=== PATIENT | female | born 1945 | race Caucasian/White ===

== ENCOUNTER → 2016-10-29 | Outpatient (CLI) | payer OTHER, MEDICAID ==
[~2016-10-29] MED LIST: ASPIR-LOX325 MG PO; CALCIUM 500 + D1 TA1 PO; CARAFATE1 G1 PO; HYDROCODONE BIT1 T11 PO; KLOR-CON M2020 MEQ PO; LASIX40 MG PO; OMEPRAZOLE DR20 MG PO
[2016-10-29 10:46] LABS: CHLORIDE 108 mmol/L (98-107); POTASSIUM 3.6 mmol/L (3.5-5.1); SODIUM 140 mmol/L (136-145); TOTAL PROTEIN 6.5 gm/dL (6.4-8.2)
[2016-10-29 10:51] LABS: ALBUMIN 3.7 gm/dl (3.1-4.5); ALKALINE PHOSPHATASE 81 U/L (45-117); BUN 19 mg/dl (7-24); CHOLESTEROL 174 mg/dL (<200); CPK 94 U/L (26-192); CREATININE 0.57 mg/dL (0.55-1.02); HDL CHOLESTEROL 58 mg/dl (40-60); LDL CHOLESTEROL 103 mg/dL (9-159); SGOT/AST 29 IU/L (3-35); SGPT/ALT 27 U/L (12-78); TRIGLYCERIDES 65 mg/dl (<150); VLDL CHOLESTEROL 13 mg/dL (6-40)
== END | disposition home or self-care (01) ==
LOC: LAB 09:46
PROVIDERS: Family Medicine
DX: E11.9 Type 2 diabetes mellitus without complications (principal); E78.00 Pure hypercholesterolemia, unspecified

== ENCOUNTER → 2017-04-27 | Outpatient (CLI) | payer OTHER, MEDICAID ==
[2017-04-27 09:45] LABS: HEMATOCRIT 41.1 % (37.0-47.0); HEMOGLOBIN 14.3 g/dl (12.0-16.0); MEAN CELL VOLUME 97.2 fl (81.0-99.0); MEAN CORPUSCULAR HGB 33.8 pg (27.0-31.0); MEAN CORPUSCULAR HGB CONC 34.8 g/dl (33.0-37.0); MEAN PLATELET VOLUME 9.3 fl (9.6-12.3); RED BLOOD COUNT 4.23 10*6/uL (4.10-5.10); RED CELL DISTRI WIDTH 12.3 % (0-14.5); WHITE BLOOD COUNT 6.7 10*3/uL (4.8-10.8)
[2017-04-27 10:15] LABS: ALBUMIN 3.7 gm/dl (3.1-4.5); ALKALINE PHOSPHATASE 89 U/L (45-117); BUN 18 mg/dl (7-24); CHLORIDE 106 mmol/L (98-107); CHOLESTEROL 194 mg/dL (<200); HDL CHOLESTEROL 62 mg/dl (40-60); LDL CHOLESTEROL 103 mg/dL (9-159); POTASSIUM 3.9 mmol/L (3.5-5.1); SGOT/AST 29 IU/L (3-35); SGPT/ALT 23 U/L (12-78); SODIUM 140 mmol/L (136-145); TOTAL PROTEIN 6.7 gm/dL (6.4-8.2); TRIGLYCERIDES 143 mg/dl (<150); VLDL CHOLESTEROL 29 mg/dL (6-40)
== END | disposition home or self-care (01) ==
LOC: LAB 09:20
PROVIDERS: Family Medicine
DX: J44.9 Chronic obstructive pulmonary disease, unspecified (principal); E78.00 Pure hypercholesterolemia, unspecified; K21.9 Gastro-esophageal reflux disease without esophagitis; M19.91 Primary osteoarthritis, unspecified site; E55.9 Vitamin D deficiency, unspecified; E11.9 Type 2 diabetes mellitus without complications

== ENCOUNTER → 2017-06-01 | Outpatient (CLI) | payer OTHER, MEDICAID | END | disposition home or self-care (01) | LOC: RAD 09:24 | DX: J45.909 Unspecified asthma, uncomplicated (principal) ==

== ENCOUNTER → 2017-06-07 | Outpatient (CLI) | payer OTHER, MEDICAID ==
[2017-06-07 12:16] LABS: BASO % 0.5 % (0.0-1.0); EOS # 0.2 10*3/uL (0.0-0.4); EOS % 2.8 % (1.0-4.0); HEMATOCRIT 42.4 % (37.0-47.0); HEMOGLOBIN 14.4 g/dl (12.0-16.0); LYMPH % 15.9 % (27.0-41.0); MEAN CELL VOLUME 97.2 fl (81.0-99.0); MEAN PLATELET VOLUME 9.8 fl (9.6-12.3); MONO # 0.4 10*3/uL (0.1-1.0); MONO % 5.8 % (3.0-9.0); NEUT # 4.5 10*3/uL (2.3-7.9); NEUT % 74.8 % (47.0-73.0); PLATELET COUNT AUTOMATED 212 10*3/uL (130-400); RED BLOOD COUNT 4.36 10*6/uL (4.10-5.10); RED CELL DISTRI WIDTH 12.6 % (0-14.5); WHITE BLOOD COUNT 6.1 10*3/uL (4.8-10.8)
[2017-06-07 12:32] LABS: BUN 16 mg/dl (7-24); CREATININE 0.66 mg/dL (0.55-1.02); IRON 148 ug/dL (50-170); TOTAL IRON BINDING CAPACITY 284 ug/dl (250-450)
== END | disposition home or self-care (01) ==
LOC: LAB 11:29
PROVIDERS: Internal Medicine Hematology & Oncology
DX: D50.9 Iron deficiency anemia, unspecified (principal)

== ENCOUNTER → 2017-08-24 | Outpatient (CLI) | payer OTHER, MEDICAID ==
[2017-08-24 11:35] LABS: HEMATOCRIT 41.4 % (37.0-47.0); HEMOGLOBIN 14.4 g/dl (12.0-16.0); MEAN CELL VOLUME 96.3 fl (81.0-99.0); MEAN CORPUSCULAR HGB 33.5 pg (27.0-31.0); MEAN CORPUSCULAR HGB CONC 34.8 g/dl (33.0-37.0); RED BLOOD COUNT 4.3 10*6/uL (4.10-5.10); RED CELL DISTRI WIDTH 12.7 % (0-14.5); WHITE BLOOD COUNT 6.5 10*3/uL (4.8-10.8)
[2017-08-24 11:39] LABS: ALKALINE PHOSPHATASE 80 U/L (45-117); BUN 15 mg/dl (7-24); CHLORIDE 110 mmol/L (98-107); CHOLESTEROL 171 mg/dL (<200); CPK 58 U/L (26-192); CREATININE 0.64 mg/dL (0.55-1.02); HDL CHOLESTEROL 50 mg/dl (40-60); LDL CHOLESTEROL 99 mg/dL (9-159); POTASSIUM 4.3 mmol/L (3.5-5.1); SGOT/AST 42 IU/L (3-35); SGPT/ALT 40 U/L (12-78); SODIUM 142 mmol/L (136-145); TOTAL PROTEIN 6.9 gm/dL (6.4-8.2); TRIGLYCERIDES 108 mg/dl (<150); VLDL CHOLESTEROL 22 mg/dL (6-40)
== END | disposition home or self-care (01) ==
LOC: LAB 10:40
PROVIDERS: Family Medicine
DX: E78.00 Pure hypercholesterolemia, unspecified (principal); E11.9 Type 2 diabetes mellitus without complications; E55.9 Vitamin D deficiency, unspecified; I10 Essential (primary) hypertension

== ENCOUNTER → 2017-12-07 | Outpatient (CLI) | payer OTHER, MEDICAID ==
[2017-12-07 13:06] LABS: HEMATOCRIT 40.6 % (37.0-47.0); HEMOGLOBIN 14.2 g/dl (12.0-16.0); MEAN CELL VOLUME 96.2 fl (81.0-99.0); MEAN CORPUSCULAR HGB 33.6 pg (27.0-31.0); MEAN PLATELET VOLUME 9.8 fl (9.6-12.3); RED BLOOD COUNT 4.22 10*6/uL (4.10-5.10); RED CELL DISTRI WIDTH 12.5 % (0-14.5); WHITE BLOOD COUNT 5.9 10*3/uL (4.8-10.8)
[2017-12-07 13:33] LABS: ALBUMIN 3.8 gm/dl (3.1-4.5); ALKALINE PHOSPHATASE 83 U/L (45-117); BUN 12 mg/dl (7-24); CHLORIDE 108 mmol/L (98-107); CHOLESTEROL 169 mg/dL (<200); CPK 44 U/L (26-192); CREATININE 0.54 mg/dL (0.55-1.02); HDL CHOLESTEROL 56 mg/dl (40-60); LDL CHOLESTEROL 96 mg/dL (9-159); POTASSIUM 3.8 mmol/L (3.5-5.1); SGOT/AST 24 IU/L (3-35); SGPT/ALT 21 U/L (12-78); SODIUM 142 mmol/L (136-145); TOTAL PROTEIN 6.5 gm/dL (6.4-8.2); TRIGLYCERIDES 86 mg/dl (<150); VLDL CHOLESTEROL 17 mg/dL (6-40)
== END | disposition home or self-care (01) ==
LOC: LAB 10:59
PROVIDERS: Family Medicine
DX: Z45.2 Encounter for adjustment and management of vascular access device (principal); E11.9 Type 2 diabetes mellitus without complications; I10 Essential (primary) hypertension; E78.00 Pure hypercholesterolemia, unspecified; E55.9 Vitamin D deficiency, unspecified; J44.9 Chronic obstructive pulmonary disease, unspecified; M19.90 Unspecified osteoarthritis, unspecified site

== ENCOUNTER → 2018-06-08 | Outpatient (CLI) | payer OTHER, MEDICAID ==
[2018-06-08 11:22] LABS: HEMATOCRIT 47.5 % (37.0-47.0); MEAN CELL VOLUME 94.4 fl (81.0-99.0); MEAN CORPUSCULAR HGB 33.8 pg (27.0-31.0); MEAN CORPUSCULAR HGB CONC 35.8 g/dl (33.0-37.0); MEAN PLATELET VOLUME 9.6 fl (9.6-12.3); RED BLOOD COUNT 5.03 10*6/uL (4.10-5.10); RED CELL DISTRI WIDTH 12.3 % (0-14.5); WHITE BLOOD COUNT 6.3 10*3/uL (4.8-10.8)
[2018-06-08 11:50] LABS: ALBUMIN 4.3 gm/dl (3.1-4.5); ALKALINE PHOSPHATASE 81 U/L (45-117); BUN 18 mg/dl (7-24); CHLORIDE 103 mmol/L (98-107); CHOLESTEROL 218 mg/dL (<200); CREATININE 0.84 mg/dL (0.55-1.02); HDL CHOLESTEROL 68 mg/dl (40-60); LDL CHOLESTEROL 125 mg/dL (9-159); POTASSIUM 4.1 mmol/L (3.5-5.1); SGOT/AST 26 IU/L (3-35); SGPT/ALT 23 U/L (12-78); SODIUM 139 mmol/L (136-145); TOTAL PROTEIN 7.8 gm/dL (6.4-8.2); TRIGLYCERIDES 123 mg/dl (<150); VLDL CHOLESTEROL 25 mg/dL (6-40)
== END | disposition home or self-care (01) ==
LOC: LAB 11:03
PROVIDERS: Family Medicine
DX: E78.00 Pure hypercholesterolemia, unspecified (principal); M19.90 Unspecified osteoarthritis, unspecified site; E11.9 Type 2 diabetes mellitus without complications; J40 Bronchitis, not specified as acute or chronic; H53.8 Other visual disturbances; J43.9 Emphysema, unspecified

== ENCOUNTER → 2018-06-29 | Outpatient (CLI) | payer OTHER, MEDICAID | END | disposition home or self-care (01) | LOC: MEDIPORT 10:24 | DX: Z45.2 Encounter for adjustment and management of vascular access device (principal) ==

== ENCOUNTER → 2018-07-27 | Outpatient (CLI) | payer OTHER, MEDICAID | END | disposition home or self-care (01) | LOC: MEDIPORT 10:00 | DX: Z45.2 Encounter for adjustment and management of vascular access device (principal) ==

== ENCOUNTER 2018-10-28 12:26 | Inpatient (IN) | payer OTHER, MEDICAID ==
[~2018-10-28] VITALS: Ht 162.5 cm; Wt 71.8 kg
[2018-10-28 12:26] VITALS: BP 115/44
[2018-10-28 13:10] LABS: BASO % 0.6 % (0.0-1.0); EOS % 0.2 % (1.0-4.0); HEMATOCRIT 39.8 % (37.0-47.0); HEMOGLOBIN 13.8 g/dl (12.0-16.0); LYMPH # 0.4 10*3/uL (1.3-4.4); LYMPH % 7.6 % (27.0-41.0); MEAN CELL VOLUME 93.6 fl (81.0-99.0); MEAN CORPUSCULAR HGB 32.5 pg (27.0-31.0); MEAN CORPUSCULAR HGB CONC 34.7 g/dl (33.0-37.0); MEAN PLATELET VOLUME 10.6 fl (9.6-12.3); MONO # 0.3 10*3/uL (0.1-1.0); MONO % 5.7 % (3.0-9.0); NEUT # 4.5 10*3/uL (2.3-7.9); NEUT % 85.5 % (47.0-73.0); PLATELET COUNT AUTOMATED 101 10*3/uL (130-400); RED BLOOD COUNT 4.25 10*6/uL (4.10-5.10); RED CELL DISTRI WIDTH 12.9 % (0-14.5); WHITE BLOOD COUNT 5.2 10*3/uL (4.8-10.8)
[2018-10-28 13:21] LABS: INTERNATIONAL NORM RATIO 1.2 (2.0-3.5)
[2018-10-28 13:26] LABS: ALBUMIN 2.9 gm/dl (3.1-4.5); ALKALINE PHOSPHATASE 100 U/L (45-117); BUN 15 mg/dl (7-24); CHLORIDE 96 mmol/L (98-107); CREATININE 0.57 mg/dL (0.55-1.02); POTASSIUM 3.6 mmol/L (3.5-5.1); SGOT/AST 55 IU/L (3-35); SGPT/ALT 40 U/L (12-78); SODIUM 129 mmol/L (136-145)
[2018-10-28 13:28] LABS: TROPONIN I < 0.015 ng/ml (<0.045)
[2018-10-28 13:38] LABS: BILIRUBIN 1+ (NEGATIVE); BLOOD 3+ (NEGATIVE); CLARITY CLOUDY (CLEAR); COLOR YELLOW (YELLOW); GLUCOSE NEGATIVE (NEGATIVE); KETONE 1+ (NEGATIVE); LEUKO ESTERASE 2+ (NEGATIVE); NITRITE POSITIVE (NEGATIVE); SPECIFIC GRAVITY 1.025 (1.005-1.030)
[2018-10-28 13:50] LABS: BACTERIA 4+; WBC 41-50 wbc/hpf (0-5)
[2018-10-28 14:31] VITALS: BP 118/50
[2018-10-28 15:00] VITALS: BP 130/68
--- NOTE | 2018-10-28 15:00 | NUR ---
Time: 1499 A 73 year old FEMALE admitted to 5E under services of DR. YAZMIN MEJIA,DELMI Oneal Pt. arrived via wheel chair from ER. Chief complaint: DYSURIA. ANNA CARDONA
[2018-10-28 15:15] VITALS: BP 130/68
[2018-10-28] MEDS ORDERED: OXYBUTYNIN10 MG PO (15:15)
[2018-10-28] MEDS ORDERED: VESICARE5 MG PO (15:17)
--- NOTE | 2018-10-28 16:01 | NUR ---
PATIENT COMPLAINS OF ALL OVER ACHE/PAIN 5/10. MEDICATED PER ORDER. WILL CONTINUE TO MONITOR FOR RELIEF. RESTING IN BED, CALL LIGHT WITHIN REACH.
--- NOTE | 2018-10-28 16:20 | NUR ---
PATIENT COMPLAINS OF NAUSEA. OBSERVED DRY HEAVING AND ONE EPISODE OF VOMITING. NOTIFIED DR. ARCE. ORDERS RECIEVED.
--- NOTE | 2018-10-28 16:45 | NUR ---
PATIENT COMPLAINS OF NAUSEA AND VOMITING. MEDICATED WITH 8MG OF SL ZOFRAN PER ORDER. WILL CONTINUE TO MONITOR FOR RELIEF. RESTING IN BED, CALL LIGHT WITHIN REACH. VOICES NO OTHER CONCERNS AT THIS TIME.
--- NOTE | 2018-10-28 16:55 | NUR ---
8MG SL ZOFRAN EFFECTIVE PER PATIENT
--- NOTE | 2018-10-28 16:56 | NUR ---
PT ASSISTED TO RESTROOM. NOTICED PT HAD MAXI PAD ON WITH STOOL ON IT. PT STATES AT THIS TIMEHER "BLADDER FALLS OUT AND SHE PUSHES IT BACK UP". PT ALSO STATES SHE HAD BEEN "PEEING POOP" FOR TWO WEEKS BUT "NOBODY LISTENED". PT STATES SHE HAD CYSTOCELE FOR AWHILE BUT ONLY NOTICED STOOL DISCHARGE FOR PAST TWO WEEKS. PERICARE PROVIDED. NOTIFIED DR ARCE.DR ARCE STATED THAT THE PT WILL PROBABLY BE TRANSFERRED TO [facility] TOMORROW. MODERATE AMOUNT DARK GREEN STOOL/DISCHARGE NOTED TO PAD AND COMING FROM VAGINA.
--- NOTE | 2018-10-28 17:49 | NUR ---
Patient resting quietly with no c/o discomfort. Respirations easy and regular. Vital signs stable. No overt distress. Call light within reach. HISSOM,JOSE
--- NOTE | 2018-10-28 19:57 | NUR ---
24 HR chart check completed.
[2018-10-28 20:00] VITALS: BP 106/41
--- NOTE | 2018-10-28 20:30 | NUR ---
RESTING IN BED WITH NO ACUTE DISTRESS NOTED. RESPIRATIONS EASY. LUNGS DIMINISHED, CLEAR. PULSE OX 95% RA. IV FLUIDS INFUSING PER ORDER. CALL LIGHT WITHIN REACH. NO VOICED COMPLAINTS. BED ALARM MAINTAINED FOR SAFETY
[2018-10-29] VITALS: BP 101/52
--- NOTE | 2018-10-29 | NUR ---
SLEEPING. NO DISTRESS NOTED. RESPIRATIONS EASY. VSS. CALL LIGHT WITHIN REACH. BED ALARM MAINTAINED FOR SAFETY
--- NOTE | 2018-10-29 06:00 | NUR ---
SLEPT THROUGHOUT NIGHT WITH NO DISTRESS NOTED. RESPIRATIONS EASY. IV FLUIDS MAINTAINED. CALL LIGHT WITHIN REACH. NO VOICED COMPLAINTS THIS SHIFT
[2018-10-29 06:40] LABS: BUN 10 mg/dl (7-24); CHLORIDE 100 mmol/L (98-107); CREATININE 0.36 mg/dL (0.55-1.02); POTASSIUM 3.4 mmol/L (3.5-5.1); SODIUM 129 mmol/L (136-145)
[2018-10-29 08:00] VITALS: BP 104/48
[2018-10-29 12:00] VITALS: BP 100/42
--- NOTE | 2018-10-29 14:59 | NUR ---
DR RAMIREZ NOTIFIED OF CONSULT.
[2018-10-29 16:00] VITALS: BP 107/52
--- NOTE | 2018-10-29 16:00 | NUR ---
PHYSICAL THERAPY PT EVAL COMPLETED TODAY: FULL EVALUATION TO FOLLOW. RECOMMEND PT WHILE HERE TO ADDRESS DECREASED STRENGTH, BALANCE AND ENDURANCE. PT EVAL IS LOW COMPLEXITY :[id number]. D/C RECOMMENDATIONS AT THIS TIME ARE SNF VS HH BASED ON HOW SHE DOES WHILE HERE AND ALSO IF SHE MEETS CRITERIA FOR SNF. THANK YOU FOR REFERRAL JOSE JOSUE PT
[2018-10-29 20:00] VITALS: BP 117/61
--- NOTE | 2018-10-29 22:16 | NUR ---
CEPACOL GIVEN FOR C/O SORE THROAT.
[2018-10-30] VITALS: BP 102/55
--- NOTE | 2018-10-30 | NUR ---
AAOX3 RESTING IN BED WITH HOB SLIGHTLY ELEVATED. IV FLUIDS INFUSING INTO MEDIPORT WITHOUT DIFFICULTY. PT. VOICES NO C/O AT THIS TIME. ASSISTED BY THIS RN UP TO BATHROOM. GAIT SLOW & STEADY. BACK TO BED; BED ALARM ON; BED IN LOW LOCKED POSITION. CALL LIGHT WITHIN REACH.
--- NOTE | 2018-10-30 03:08 | NUR ---
RESTING IN BED WITH EYES CLOSED. IV FLUIDS INFUSING WITHOUT DIFFICULTY. CALL LIGHT REMAINS WITHIN REACH. BED ALARM INTACT.
--- NOTE | 2018-10-30 06:10 | NUR ---
ASSISTED UP TO BATHROOM. LAB HERE FOR BLOOD DRAW. PT. VOICES NO C/O AT THIS TIME. CALL LIGHT WITHIN REACH.
[2018-10-30 06:45] LABS: BUN 9 mg/dl (7-24); CHLORIDE 98 mmol/L (98-107); CREATININE 0.37 mg/dL (0.55-1.02); POTASSIUM 3.6 mmol/L (3.5-5.1); SODIUM 130 mmol/L (136-145)
[2018-10-30 08:00] VITALS: BP 98/60
[2018-10-30 12:00] VITALS: BP 115/60
--- NOTE | 2018-10-30 14:40 | NUR ---
24 HR chart check completed.
--- NOTE | 2018-10-30 15:30 | NUR ---
DR. CINTRON NOTIFIED OF CONSULT. SHE WANTS TO BE NOTIFIED AGAIN IF PATIENT IS STILL HERE ON WEDNESDAY SO SHE CAN COME AND DO THE CONSULT.
[2018-10-30 16:00] VITALS: BP 92/40
[2018-10-30 20:00] VITALS: BP 127/87; BP 96/48
--- NOTE | 2018-10-30 20:00 | NUR ---
IN TO ASSESS PATIENT. ALERT AND ORIENTED. PLEASANT AND COOPERATIVE. NO COMPLAINTS AT THIS TIME. LUNGS DIMINISHED T/O. ON ROOM AIR. DENIES SOB, DENIES CP. DENIES N/V/C/D AT THIS TIME. STATES SHE HAS MOVED HER BOWELS TODAY. GAIT IS STEADY WHEN ASSISTED TO BATHROOM. CALL LIGHT WITHIN REACH, WILL MONITOR
--- NOTE | 2018-10-30 23:44 | NUR ---
PATIENT SLEEPING. NO DISTRESS NOTED. IV FLUIDS INFUSING THROUGH MEDIPORT. CALL LIGHT WITHIN REACH WILL MONITOR
[2018-10-31] VITALS (8 sets, daily range): BP systolic 89–132; BP diastolic 43–79
--- NOTE | 2018-10-31 03:08 | NUR ---
24 HR chart check completed.
[2018-10-31 06:59] LABS: BUN 7 mg/dl (7-24); CHLORIDE 104 mmol/L (98-107); CREATININE 0.32 mg/dL (0.55-1.02); POTASSIUM 3.2 mmol/L (3.5-5.1); SODIUM 135 mmol/L (136-145)
--- NOTE | 2018-10-31 08:00 | NUR ---
PHYSICAL THERAPY Patient seen this am 1;1 for therapy visit and was supine in bed upon therapist arrival. Patient identified by name and , voicing no new c/o's at this time. Patient transfers supine to sit EOB Min A and sit to stand LEAVE COORDINATOR/MIN. Patient ambulates LEAVE COORDINATOR/Min, demonstrating very slow kieran, unsteady gait pattern and LOB x 1 during backward gait along rail. Patient returned to supine in bed with increased fatigue and remained with call light, tray table, telephone and bed alarm. Will continue per POC as tolerated, total treatment time 14 minutes. Kervin Thompson, TITLE CLERK
--- NOTE | 2018-10-31 10:35 | NUR ---
Patient resting quietly with no c/o discomfort. Respirations easy and regular. Vital signs stable. No overt distress. ANNA CARDONA
--- NOTE | 2018-10-31 11:00 | NUR ---
Fountain Helper in to talk to patient. Patient states lives at home with her friend and her niece checking in on her. There are 0 steps in the home. Physician: no family physician, has seen Dr. Riley in the past [facility]acy[facility] [place] Home health services: none Patient's level of ADLs: INDEPENDENT Patient has working utilities: yes DME: none Follow-up physician's appointment after d/c: she prefers to find a new PCP on her own Does patient want to access PORTAL?: no Discharge plan discussed with patient. She lives at home with a friend and her niece checking in on her. She is independent in her ADLs and ambulation. Discussed home health care services and she denies any home needs at this time. when medically stable she will be discharged to home. Her friend will provide transportation. QUANG BROOKS
--- NOTE | 2018-10-31 14:03 | NUR ---
DR ARCE ROUNDED AND ORDER RECIEVED.
--- NOTE | 2018-10-31 15:21 | NUR ---
RESTING IN BED WITH EYES CLOSED. NO DISTRESS NOTED.AWAITING EGD WITH DR RAMIREZ. RESPS EASY ON RA. CALL LIGHT IN REACH.
--- NOTE | 2018-10-31 15:46 | NUR ---
PT C/O THAT THEY ARE TIRED OF WAITING ON DRVj CONCERNED WITH WHEN SHE WILL EAT.ENCOURAGEMENT AND EMOTIONAL SUPPORT PROVIDED.
--- NOTE | 2018-10-31 18:47 | NUR ---
PT OFF FLOOR FOR A PROCEDURE SATX NOT GIVEN
--- NOTE | 2018-10-31 23:18 | NUR ---
24 HR chart check completed.
[2018-11-01] VITALS: BP 111/59
--- NOTE | 2018-11-01 04:05 | NUR ---
AWAKE WAS UP TO BATHROOM VOIDED TORSTEN COLORED URINE AND RETURNED TO BED. NO ACUTE DISTRESS NOTED.
[2018-11-01 07:37] LABS: BUN 4 mg/dl (7-24); CHLORIDE 103 mmol/L (98-107); CREATININE 0.26 mg/dL (0.55-1.02); POTASSIUM 3.4 mmol/L (3.5-5.1); SODIUM 135 mmol/L (136-145)
--- NOTE | 2018-11-01 07:50 | NUR ---
PHYSICAL THERAPY Patient seen this am 1;1 for therapy visit and was sitting up on EOB upon therapist arrival. Patient identified by name / and was very pleasant this morning, voicing no c/o's pain. Patient instructed / performed seated B LE therex, all planes, x 20 reps each to increase LE strength without c/o, followed by sit to stand transfer, CGA x 1. Patient ambulates SUPPORT SERVICES TECH/CGA, 50'x 2, demonstrating slow kieran and unsteady gait pattern during gait speed change. Patient also very cautious during backward steps x 5 feet and increased fatigue upon return to EOB sit secondary to decreased standing activity tolerance. Patient would benefit from SNF to improve LE strength, safe transfers / mobility to decrease risk of falling. Patient remained EOB with call light and tray table and will continue per POC as tolerated. Total treatment time 24 minutes. Kervin Thompson, REGISTERED MASSAGE THERAPIST
[2018-11-01 08:00] VITALS: BP 140/68
--- NOTE | 2018-11-01 08:29 | NUR ---
PT UP AMBULATING WITH PT
--- NOTE | 2018-11-01 08:36 | NUR ---
Vermin Exterminator in to see patient. She would like to be discharged today if possible as her boyfriend is having testing done tomorrow and she would like to go with him. Dr. Collier notified. She denies any home needs. When medically stable she will be discharged to home.
--- NOTE | 2018-11-01 08:58 | NUR ---
BRAKE REPAIR MECHANIC spoke with the patient this morning while signing Medicare Rights form. Patient stated she would like to be discharged if everythign is okay. She stated that her significant other has a doctors appointment tomorrow that she does not want to miss. JOHN informed Production Or Plant Engineer Ingrid. -JOHN Brewster
[2018-11-01] MEDS ORDERED: PROTONIX40 M1 IV (10:13)
[2018-11-01] MEDS ORDERED: Carafate1 GM PO (10:13)
--- NOTE | 2018-11-01 11:34 | NUR ---
Discharge instructions reviewed with patient/family. Patient receptive and verbalizes understanding. Follow-up care arranged. Written instructions given to patient/family. JASON CROWE
--- NOTE | 2018-11-02 07:53 | NUR ---
PHYSICAL THERAPY CO-SIGN I approve of the Physical Therapy notes written above. QUANG SHIELDS PT,DPT
== END 2018-11-01 11:34 | disposition home or self-care (01) | DRG 381 ==
LOC: ED 12:26 → EDHOLD 13:47 → 5E 13:47
PROVIDERS: Emergency Medicine; ADMIT Internal Medicine
PROC: 0DB68ZX Excision of Stomach, Via Natural or Artificial Opening Endoscopic, Diagnostic (ICD-10-PCS; principal; 2018-10-31)
DX: K22.10 Ulcer of esophagus without bleeding (principal); J44.1 Chronic obstructive pulmonary disease with (acute) exacerbation; N39.0 Urinary tract infection, site not specified; E87.1 Hypo-osmolality and hyponatremia; E44.1 Mild protein-calorie malnutrition; E86.0 Dehydration; E87.6 Hypokalemia; K21.0 Gastro-esophageal reflux disease with esophagitis; E78.2 Mixed hyperlipidemia; J45.40 Moderate persistent asthma, uncomplicated; D63.8 Anemia in other chronic diseases classified elsewhere; R62.7 Adult failure to thrive; N81.10 Cystocele, unspecified; R53.1 Weakness; D69.6 Thrombocytopenia, unspecified; B96.20 Unspecified Escherichia coli [E. coli] as the cause of diseases classified elsewhere; J43.2 Centrilobular emphysema; K29.70 Gastritis, unspecified, without bleeding; K25.9 Gastric ulcer, unspecified as acute or chronic, without hemorrhage or perforation; Z90.710 Acquired absence of both cervix and uterus

== ENCOUNTER → 2019-02-13 | Outpatient (CLI) | payer OTHER, MEDICAID ==
[~2019-02-13] MED LIST changes: +Carafate1 GM PO; +OXYBUTYNIN10 MG PO; +PROTONIX40 M1 IV; +VESICARE5 MG PO
--- NOTE | 2019-02-13 11:23 | NUR ---
1122- MEDIPORT ACCESSD WITH NON-CORING NEEDLE AFTER CLEANSING WITH CHLORAPREP. FLUSHED EASILY AND NON-CORING NEEDLE WITHDRAWN INTACT. BANDAID TO SITE. DISCHARGED AMBULATORY.
== END | disposition home or self-care (01) ==
LOC: MEDIPORT 10:57
DX: Z45.2 Encounter for adjustment and management of vascular access device (principal)

== ENCOUNTER → 2019-02-21 | Outpatient (CLI) | payer OTHER, MEDICAID ==
[2019-02-21 14:55] LABS: CHLORIDE 110 mmol/L (98-107); POTASSIUM 3.6 mmol/L (3.5-5.1); SODIUM 143 mmol/L (136-145)
[2019-02-21 15:02] LABS: ALBUMIN 3.8 gm/dl (3.1-4.5); ALKALINE PHOSPHATASE 102 U/L (45-117); BUN 12 mg/dl (7-24); CHOLESTEROL 197 mg/dL (<200); CPK 55 U/L (26-192); CREATININE 0.74 mg/dL (0.55-1.02); HDL CHOLESTEROL 63 mg/dl (40-60); LDL CHOLESTEROL 87 mg/dL (9-159); SGOT/AST 24 IU/L (3-35); SGPT/ALT 24 U/L (12-78); TOTAL PROTEIN 6.9 gm/dL (6.4-8.2); TRIGLYCERIDES 236 mg/dl (<150); VLDL CHOLESTEROL 47 mg/dL (6-40)
== END | disposition home or self-care (01) ==
LOC: LAB 13:46
PROVIDERS: Family Medicine
DX: E55.9 Vitamin D deficiency, unspecified (principal); E11.9 Type 2 diabetes mellitus without complications; I10 Essential (primary) hypertension; E78.00 Pure hypercholesterolemia, unspecified

== ENCOUNTER → 2019-07-27 | Outpatient (CLI) | payer OTHER, MEDICAID ==
--- NOTE | 2019-07-27 10:25 | NUR ---
PT HERE FOR MEDIPORT FLUSH. [facility] MEDIPORT ACCESSED WITH NONCORING NEEDLE WITHOUT DIFFUCULTY. PROMPT BLOOD RETURN NOTED. HEPARIN FLUSH PER POLICY. NEEDLE REMOVED. DRESSING APPLIED. TOLERATED WELL. ROMARIO MILES RN
== END | disposition home or self-care (01) ==
LOC: MEDIPORT 09:28
DX: Z45.2 Encounter for adjustment and management of vascular access device (principal)

== ENCOUNTER → 2019-09-27 | Outpatient (CLI) | payer OTHER, MEDICAID ==
--- NOTE | 2019-09-27 09:44 | NUR ---
PT HERE FOR MEDIPORT FLUSH ORDERED. ACCESSED WITH NONCORING NEEDLE PER POLICY FLUSHED WITH HEPARIN AFTER BLOOD RETURN NOTED. TOLERATED WELL NEEDLE REMOVED. DRESSING APPLIED. ROMARIO HOLT
== END | disposition home or self-care (01) ==
LOC: MEDIPORT 09:33
DX: Z45.2 Encounter for adjustment and management of vascular access device (principal)

== ENCOUNTER → 2019-10-27 | Outpatient (CLI) | payer OTHER, MEDICAID ==
--- NOTE | 2019-10-27 10:56 | NUR ---
1010- MEDIPORT ACCESSED WITH NON-CORING NEEDLE AFTER CLEANSING WITH CHLORAPREP. PROMPT BLOOD RETURN OBTAINED. FLUSHED PER POLICY AND NON-CORING NEEDLE WITHDRAWN INTACT. BANDAID TO SITE.
== END | disposition home or self-care (01) ==
LOC: MEDIPORT 09:57
PROVIDERS: ATTEND Family Medicine
DX: Z45.2 Encounter for adjustment and management of vascular access device (principal)

== ENCOUNTER → 2019-11-16 | Outpatient (CLI) | payer OTHER, MEDICAID ==
--- NOTE | 2019-11-16 10:25 | NUR ---
[facility] MEDIPORT ACCESSED WITH NONCORING NEEDLE WITHOUT DIFFCULTY. PROMPT BLOOD RETURN NOTED. FLUSHED WITH HEPARIN ORDERED. NEEDLE REMOVED. NO BLEEDING NOTED. DRESSING APPLIED. ROMARIO MILES RN
== END | disposition home or self-care (01) ==
LOC: MEDIPORT 11-13 10:00
PROVIDERS: ATTEND Family Medicine
DX: Z45.2 Encounter for adjustment and management of vascular access device (principal); M17.12 Unilateral primary osteoarthritis, left knee; M25.572 Pain in left ankle and joints of left foot; W19.XXXA Unspecified fall, initial encounter; Y92.89 Other specified places as the place of occurrence of the external cause; Y93.89 Activity, other specified; Y99.8 Other external cause status

== ENCOUNTER → 2019-12-19 | Outpatient (CLI) | payer OTHER, MEDICAID ==
--- NOTE | 2019-12-19 10:18 | NUR ---
1017[facility] CLEANSING WITH CHLORAPREP. SLIGHT BLOOD RETURN OBTAINED. FLUSHED EASILY PER POLICY, NON-CORING NEEDLE REMOVED INTACT AND BANDAID TO SITE. DISCHARGED AMBULATORY.
== END | disposition home or self-care (01) ==
LOC: MEDIPORT 09:57
PROVIDERS: ATTEND Family Medicine
DX: Z45.2 Encounter for adjustment and management of vascular access device (principal)

== ENCOUNTER → 2020-12-11 | Outpatient (CLI) | payer OTHER, MEDICAID ==
[2020-12-11 12:35] LABS: HEMATOCRIT 30.9 % (37.0-47.0); MEAN CELL VOLUME 84.2 fl (81.0-99.0); MEAN CORPUSCULAR HGB CONC 28.5 g/dl (33.0-37.0); MEAN PLATELET VOLUME 9.9 fl (9.6-12.3); RED BLOOD COUNT 3.67 10*6/uL (4.10-5.10); RED CELL DISTRI WIDTH 17.6 % (0-14.5); WHITE BLOOD COUNT 5.8 10*3/uL (4.8-10.8)
[2020-12-11 12:51] LABS: ALBUMIN 2.5 gm/dl (3.1-4.5); ALKALINE PHOSPHATASE 109 U/L (45-117); BUN 19 mg/dl (7-24); CHLORIDE 112 mmol/L (98-107); CHOLESTEROL 144 mg/dL (<200); CPK 46 U/L (26-192); CREATININE 0.51 mg/dL (0.55-1.02); POTASSIUM 3.9 mmol/L (3.5-5.1); SGOT/AST 21 IU/L (3-35); SGPT/ALT 20 U/L (12-78); SODIUM 141 mmol/L (136-145)
[2020-12-11 12:53] LABS: LDL CHOLESTEROL 65 mg/dL (9-159); TOTAL PROTEIN 5.7 gm/dL (6.4-8.2); TRIGLYCERIDES 138 mg/dl (<150)
== END | disposition home or self-care (01) ==
LOC: LAB 11:45
PROVIDERS: ATTEND Family Medicine
DX: I10 Essential (primary) hypertension (principal); E11.9 Type 2 diabetes mellitus without complications; E55.9 Vitamin D deficiency, unspecified; R53.83 Other fatigue

== ENCOUNTER 2021-01-10 11:00 | Emergency (ER) | payer OTHER, MEDICAID ==
[~2021-01-10] VITALS: Ht 165.1 cm; Wt 68.0 kg
[2021-01-10 13:11] LABS: BASO # 0.1 10*3/uL (0.0-0.1); BASO % 1.1 % (0.0-1.0); EOS # 0.1 10*3/uL (0.0-0.4); EOS % 2.2 % (1.0-4.0); HEMATOCRIT 32.9 % (37.0-47.0); LYMPH # 0.6 10*3/uL (1.3-4.4); LYMPH % 11.1 % (27.0-41.0); MEAN CELL VOLUME 85.5 fl (81.0-99.0); MEAN CORPUSCULAR HGB 23.6 pg (27.0-31.0); MEAN CORPUSCULAR HGB CONC 27.7 g/dl (33.0-37.0); MEAN PLATELET VOLUME 8.8 fl (9.6-12.3); MONO # 0.3 10*3/uL (0.1-1.0); MONO % 5.8 % (3.0-9.0); NEUT # 4.3 10*3/uL (2.3-7.9); NEUT % 79.2 % (47.0-73.0); PLATELET COUNT AUTOMATED 347 10*3/uL (130-400); RED BLOOD COUNT 3.85 10*6/uL (4.10-5.10); RED CELL DISTRI WIDTH 21.4 % (0-14.5); WHITE BLOOD COUNT 5.4 10*3/uL (4.8-10.8)
[2021-01-10 13:21] LABS: BUN 18 mg/dl (7-24); CHLORIDE 112 mmol/L (98-107); CREATININE 0.44 mg/dL (0.55-1.02); POTASSIUM 4.2 mmol/L (3.5-5.1); SODIUM 140 mmol/L (136-145)
[2021-01-10 14:56] VITALS: BP 134/66
== END 2021-01-10 15:00 | disposition home or self-care (01) ==
LOC: ED 11:00
PROVIDERS: Emergency Medicine
DX: S79.911A Unspecified injury of right hip, initial encounter (principal); D64.9 Anemia, unspecified; Z79.899 Other long term (current) drug therapy; W18.39XA Other fall on same level, initial encounter; Y93.89 Activity, other specified; Y92.89 Other specified places as the place of occurrence of the external cause; Y99.8 Other external cause status